=== PATIENT | female | born 1980 | race Two or more races ===

== ENCOUNTER 2016-10-07 11:51 | Emergency (ER) | payer MEDICAID ==
--- NOTE | 2016-10-07 12:45 | ED Physician Documentation ---
PD HPI URI - Stated complaint Stated Complaint: COUGH/SINUS PRESSURE - Chief complaint Chief Complaint: Resp - History obtained from History obtained from: Patient - History of Present Illness Timing duration: Days (3) Timing details: Abrupt onset, Still present Associated symptoms: Fever, Chills, Nasal congestion, Sore throat, Dry cough. No: Chest pain, NVD Contributing factors: No: Sick contact, COPD / asthma Worsened by: Activity Similar symptoms before: Has not had sx before Recently seen: Not recently seen Review of Systems Constitutional: reports: Fever, Chills, Myalgias Nose: reports: Rhinorrhea / runny nose, Congestion Throat: denies: Sore throat Cardiac: denies: Chest pain / pressure Respiratory: reports: Dyspnea, Cough GI: denies: Nausea, Vomiting, Diarrhea Skin: denies: Rash, Lesions Neurologic: reports: Generalized weakness. denies: Focal weakness, Numbness, Near syncope Immunocompromised: denies: Immunocompromised PD PAST MEDICAL HISTORY - Past Medical History Past Medical History: Yes Cardiovascular: None Respiratory: None Neuro: None Endocrine/Autoimmune: None Other Past Medical History: whooping cough, kidney stones - Past Surgical History Past Surgical History: No - Present Medications Home Medications: Ambulatory Orders Medication Instructions Recorded Confirmed Albuterol Sulfate [Proair Hfa 8.5 gm IH QID #1 hfa.aer.ad 10/07/16 Inhaler] Cetirizine [ZyrTEC] 10 mg PO DAILY #30 tablet 10/07/16 Dexamethasone [Decadron] 4 mg PO DAILY #5 tablet 10/07/16 Fluticasone [Flonase] 1 sprays JUNE BID #1 bottle 10/07/16 Promethazine HCl 6.25 mg PO BID PRN #120 ml 10/07/16 - Allergies Allergies/Adverse Reactions: Allergies Allergy/AdvReac Type Severity Reaction Status Date / Time Sulfa (Sulfonamide Allergy Hives Verified 10/07/16 11:56 Antibiotics) - Social History Does the pt smoke?: No Smoking Status: Never smoker Does the pt drink ETOH?: No Does the pt have substance abuse?: No - Immunizations Immunizations are current?: Yes PD ED PE NORMAL - Vitals Vital signs reviewed: Yes - General General: Alert and oriented X 3, No acute distress, Well developed/nourished - HEENT HEENT: Ears normal (they look okay at this time), Pharynx benign - Neck Neck: Supple, no meningeal sign, No adenopathy - Cardiac Cardiac: RRR, No murmur - Respiratory Respiratory: Clear bilaterally - Abdomen Abdomen: Soft, Non tender - Derm Derm: Normal color, Warm and dry - Neuro Neuro: Alert and oriented X 3, No motor deficit, Normal speech - Psych Psych: Normal mood, Normal affect Results - Vitals Vitals: Oxygen O2 Source Room air Departure - Departure Disposition: 01 Home, Self Care Clinical Impression: Cough, Sinus congestion Upper respiratory tract infection Qualifiers: URI type: unspecified URI Qualified Code(s): J06.9 - Acute upper respiratory infection, unspecified Condition: Stable Record reviewed to determine appropriate education?: Yes Instructions: ED URI Viral W Wheezing Follow-Up: [facility] [Provider Group] Prescriptions: Dexamethasone [Decadron] 4 mg PO DAILY #5 tablet Fluticasone [Flonase] 1 sprays JUNE BID #1 bottle Albuterol Sulfate [Proair Hfa Inhaler] 8.5 gm IH QID #1 hfa.aer.ad Promethazine HCl 6.25 mg PO BID PRN #120 ml PRN Reason: Cough Cetirizine [ZyrTEC] 10 mg PO DAILY #30 tablet Comments: Use Albuterol inhale 2 puffs 4 times daily for 1-2 weeks for cough and tightness. Promethazine for cough as needed. Cetrizine antihistamine for sinus congestion. Decadron oral steroid initially to help sinuses and bronchioles, then go with the FLonase for sinus particularly. Tylenol as needed for feverrs and aches. Off work a few days as needed. Recheck if not improved over the next several days. This sounds like viral or possibly allergic (or combo of both). Forms: Activity restrictions Discharge Date/Time: 10/07/16 13:19
[2016-10-07 13:22] VITALS: BP 105/78
== END 2016-10-07 13:19 | disposition home or self-care (01) ==
LOC: ED 11:51
DX: J06.9 Acute upper respiratory infection, unspecified (principal)
CPT/HCPCS: 99283